=== PATIENT | female | born 1990 | race Caucasian/White ===

== ENCOUNTER 2017-05-11 18:58 | Emergency (ER) | payer SELFPAY ==
[2017-05-11 18:59] VITALS: BP 186/85; PULSE 104; RESP 16; TEMP 98; O2SAT 99
--- NOTE | 2017-05-11 21:07 | PD ---
HPI Chief Complaint: Musculoskeletal Complaint Time Seen by Provider: 19:03 Travel History International Travel<30 days: No Contact w/Intl Traveler<30days: No Traveled to known affect area: No History of Present Illness HPI Patient is a 26-year-old female presenting to the emergency department for evaluation of low back pain. Patient states the pain started 4 days ago. There was no preceding injury or trauma. Today she states she picked up something at [employer] and felt a shock. She currently reports that her pain feels tight and reports it at a 5 out of 10. She denies any numbness, tingling or weakness in her extremities. She denies any bladder or bowel incontinence, no cell paresthesia. Pain is exacerbated with movement and alleviated somewhat with rest. She hasn't taken any medications to alleviate the pain. [facility] Past Medical History Narrative Medical Asperger's ?: Not LMP: 04/25/17 Social History Tobacco Use: No Review of Systems Except as stated in HPI: all other systems reviewed are Neg Musculoskeletal: Positive: Myalgias, Cramping, Pain Physical Exam Narrative GENERAL: Overweight, well-developed, alert female. Appears uncomfortable, in no acute distress. SKIN: Warm and dry. HEAD: Normocephalic. EYES: No scleral icterus. No injection or drainage. NECK: Supple, trachea midline. No JVD or lymphadenopathy. CARDIOVASCULAR: Regular rate RESPIRATORY: No accessory muscle use. BACK: No obvious deformity. Data Data Last Documented VS Vital Signs Date Time Temp Pulse Resp B/P (MAP) Pulse Ox O2 Delivery O2 Flow Rate FiO2 05/11/17 18:59 98.0 104 16 186/85 (118) 99 Room Air [facility] Medical Decision Making Medical Screen Exam Complete: Yes Emergency Medical Condition: Yes Interpretation(s) Vital Signs Date Time Temp Pulse Resp B/P (MAP) Pulse Ox O2 Delivery O2 Flow Rate FiO2 05/11/17 18:59 98.0 104 16 186/85 (118) 99 Room Air Differential Diagnosis Strain versus spasm versus discogenic pain versus other Narrative Course Patient is a 26-year-old female presented to the emergency department for evaluation of 4 days of low back pain, there was no preceding injury or trauma. Patient is well-appearing. Her vital signs are stable. Patient is observed ambulating in triage without difficulty. Patient decided that she wanted to leave prior to being completely evaluated due to the wait. Patient Leonidas Yoon has decided to leave the hospital against medical advice. This patient has the capacity to refuse care and understands the risks of leaving, including permanent disability and/or , and has had an opportunity to ask questions about her condition. The patient has been informed that she may return for care at any time, and follow up has been arranged/advised. Diagnosis Primary Impression: Left against medical advice Alaina Galarza May 11, 2017 21:07
== END 2017-05-11 21:00 | disposition left against medical advice (07) ==
LOC: NETRI 18:58
DX: M54.5 Low back pain (principal)
CPT/HCPCS: 99281